=== PATIENT | male | born 1960 | race Hispanic/Latino ===

== ENCOUNTER 2025-07-08 12:45 | Emergency (ER) | payer OTHER ==
[~2025-07-08] VITALS: Ht 165.1 cm; Wt 74.8 kg
[2025-07-08 12:48] VITALS: RESP 19
--- NOTE | 2025-07-08 14:29 | ERN ---
ED Note History of Present Illness Stated Complaint: ABSCESS Chief Complaint: Abscess Time Seen by MD: 12:54 Time Seen by Midlevel: 13:00 Dictation: 65-year-old male coming in with complaints of an abscess to the left lateral upper thigh. Patient states this is the 3rd time that he gets an abscess like this usually has to be drained. Denies having any fever, nausea or vomiting. Patient denies having any recent antibiotics. Denies having any medical problems. Allergies: Coded Allergies: No Known Drug Allergies (Unverified Allergy, Unknown, 07/08/25) Past Medical History Past Medical History: Diabetes-Type II, High Cholesterol, Hypertension, TIA Surgical History: Other Surgical History Other: RECURRENT ABSCESS, ABD HERNIA REPAIR Review of System Dictation Constitutional: Negative for fever,chills, and weight loss Eyes: Negative for injury, pain,redness, and discharge ENT: Negative for injury,pain or swelling Cardiovascular: Negative for chest pain, palpitations, and edema Respiratory: Negative for shortness of breath, cough, and wheezing, Abdomen/GI: Negative for abdominal pain, nausea, vomiting, diarrhea, and con stipation Back: Negative for injury and pain : Negative for injury, bleeding and discharge MS/Extremity: Negative for injury and deformity Skin: Negative for rash, and discoloration, abscess, redness to the left thigh Neuro: Negative for headache, weakness, numbness, tingling, and seizure Psych: Negative for suicide ideation, homicidal ideation, and hallucinations Review of Systems: was completed Initial Vital Sign VS Vital Signs Date Time Temp Pulse Resp B/P (MAP) Pulse Ox O2 Delivery O2 Flow Rate FiO2 07/08/25 12:48 97.9 84 19 112/81 98 Room Air 0 Physical Exam Dictation General: awake, alert, NAD Head/Face: Normocephalic, atraumatic Eyes: PERRL, EOMI, vision at baseline ENT: oral cavity clear, TMs clear, no signs of infection Neck: Trachea midline, supple, no nuchal rigidity Cardiovascular: RRR, normal S1/S2, No MRGs, no JVD Respiratory: CTAB, no respiratory distress, No rales or wheezes Abdomen: Soft, non-tender, non-distended, normal bowel sounds, no guarding or rebound. Skin: Warm, dry, normal turgor, no rash, on the lateral aspect of the left eye there is a well took comes arrived approximate 68 cm erythematous, indurated with central fluctuant area suggestive of abscess. The center shows viral lay she shows discoloration with the multiple small pustular points since surround ing scaling. Borders are warm and tender to palpation with surrounding erythema , no drainage at this time. MS/Extremity: Pulses equal, no cyanosis, neurovascular intact, FROM Neuro: COAx4, GCS 15, strength 5/5, CN 2-12 intact, normal cerebellar exam, nor mal gait, Psych: Normal behavior, mood, and affect normal ED Course ED Course Orders Procedure Category Date Status Time Lidocaine Hcl 1% 20ml PHA 07/08/25 Complete Vial (Lidocaine Hc 13:56 Ketorolac PHA 07/08/25 Complete Tromethamine 15mg/Ml 14:00 *Nursing CPOE 07/08/25 Transmitted Communication: 13:56 Current Medications Medications (Trade) Dose Ordered Sig/Jose Route PRN Reason Start Time Stop Time Status Last Admin Dose Admin Ketorolac Tromethamine (toRADol) 15 mg ONCE ONCE IM 07/08/25 14:00 07/08/25 14:01 DC Lidocaine HCl (Lidocaine HCl 1% 20ml Vial) ONCE STAT INJ 07/08/25 13:56 07/08/25 14:00 DC Vital Signs Date Time Temp Pulse Resp B/P (MAP) Pulse Ox O2 Delivery O2 Flow Rate FiO2 07/08/25 12:48 97.9 84 19 112/81 98 Room Air 0 Medical Decision Making MDM MDM: 65-year-old male with no medical history presents with a left lateral thigh abscess onset . Reports progressive swelling, redness and tenderness. Denies having any fever or chills, numbness or weakness. Not a diabetic and not on any anticoagulation. Patient does have a prior similar infections in the last year. Exam reveals a large erythematous fluctuance warmth tender nodule with surrounding erythema consistent with the abscess and associated cellulitis. No labs ordered there is no clinical indication given stable vitals and on systemic presentation. No ultrasound performed, fluctuance collection clinically evident on bedside exam. Incision and drainage performed at bedside. See procedure note. Left thigh abscess with surrounding cellulitis without systemic toxicity. Low suspicion for necrotizing infection or bacteremia at this time. I patient antibiotics to take at home and follow up with the his PCP in 2-3 days. Discussed on warm compresses, wound care and strict return precautions like fever, worsening erythema, streaking, persistent vomiting, increased pain or no improvement in 48 hours after starting the antibiotics. Differential diagnosis: Abscess, cellulitis, folliculitis Rationale: Tests considered and ordered secondary to shared decision making include: Previous outside records reviewed: Old ER visits. Risk of complication and/or morbidity or mortality of patient management: None Medications-Per medication reconciliation Need for hospitalization: Patient does not meet criteria for hospitalization. Need for emergency major/minor surgery: No There are no social concerns with this patient. Prescription drug management Prescriptions will include symptomatic care Patient's prior external medical records from other ER visits were reviewed by me as indicated. Prior testing and results from previous visits were reviewed. Prior tests were taken into account with medical decision making and resource utilization, independent historian/historians were used to obtain complete medical history. I independently interpreted the test that were performed, results were reviewed by me and considered findings on radiology if ordered. Medical management and examination interpretation discussions were had by me with other qualified healthcare professionals as indicated for the patient's care. Procedure Blade Size: 11 I & D Procedure: no betadine prep Progress abscess in the left lateral five was infiltrated using 1% lidocaine without epi used about 10 cc for infiltrate the entire area. Using an 11 blade created an incision izaguirre, manually decompress, use hemostats to break loculations and irrigated with 30 cc of NS. No packing. Large amount of purulent drainage noted. DX & DISP Disposition: Discharge Departure Impression: Primary Impression: Abscess of left thigh Condition: Stable Scripts Sulfamethoxazole/Trimethoprim (Bactrim Ds Tablet) 800 Mg-160 Mg Tablet 1 TAB PO BID for 7 Days, #14 TAB 0 Refills Prov: PREET LU CNP 07/08/25 Additional Instructions: Keep area clean and dry. You can use warm compresses to help with there is any more drainage. Take antibiotics as prescribed. If you notice any fever, worsening redness, in no improvement in the next 48 hours after starting the antibiotic please return to the emergency room. Referrals: SELF,REFERRAL (PCP) Time of Disposition: 15:36 I have reviewed the case, and I agree with, Diagnosis and Plan PREET LU CNP Jul 08, 2025 14:29
[2025-07-08] MEDS ORDERED: SULF1TAB42 PO (15:38)
[2025-07-08 16:02] VITALS: BP 135/85; PULSE 66; TEMP 98.3; O2SAT 99
[2025-07-08] MEDS: LIDOCAINE HCL 1% 20 ML VIAL INJ STA (16:02)
--- NOTE | 2025-07-08 16:03 | NUR ---
WOUND CARE WITH NORMAL SALINE AND SHURCLEANSE TO LT THIGH,PT TOLERATED WELL. DRESSING APPLIED NON ADHERENT PAD WITH KERLIX.
== END 2025-07-08 16:05 | disposition home or self-care (01) ==
LOC: EDH 12:45
DX: L02.416 Cutaneous abscess of left lower limb (principal); E11.9 Type 2 diabetes mellitus without complications; E78.00 Pure hypercholesterolemia, unspecified; I10 Essential (primary) hypertension; Z86.73 Personal history of transient ischemic attack (TIA), and cerebral infarction without residual deficits; Z98.890 Other specified postprocedural states
CPT/HCPCS: 99284; 10061; 96372 ×2; J1885; J2003; J0696